=== PATIENT | female | born 1965 | race Caucasian/White ===

== ENCOUNTER 2019-07-16 09:20 | Inpatient (IN) | payer OTHER ==
[~2019-07-16] VITALS: Ht 177.8 cm; Wt 170.1 kg
[2019-07-16 09:36] VITALS: Ht 177.8 cm; Wt 170.1 kg
[2019-07-16 11:05] LABS: BILIRUBIN TOTAL 0.6 mg/dL (0.20-1.00); CALCIUM 9.4 mg/dL (8.5-10.1); CARBON DIOXIDE 33.2 mmol/L (21-32); POTASSIUM SERUM 4.5 mmol/L (3.5-5.1); TOTAL PROTEIN, SERUM 7.6 g/dL (6.4-8.2)
[2019-07-16 11:07] LABS: CREATININE SERUM 6.8 mg/dL (0.6-1.0)
[2019-07-16] MEDS ORDERED: BUDESONIDE0.25 MG/2 (11:50)
[2019-07-16] MEDS ORDERED: PHOS (11:50)
[2019-07-16] MEDS ORDERED: ALBUTEROL0.63 MG/3 (11:50)
[2019-07-16] MEDS ORDERED: LEVOTHYROXIN0.025 M2 (11:51)
[2019-07-16] MEDS ORDERED: OSTERA TABLET1 EACH (11:51)
[2019-07-16] MEDS ORDERED: PREDNISONE20 MG (11:51)
[2019-07-16] MEDS ORDERED: RENA-VITE RX1 TAB (11:51)
[2019-07-16] MEDS ORDERED: PROA (11:52)
[2019-07-16] MEDS ORDERED: BACTRIM DS1 TAB (11:52)
[2019-07-16] MEDS ORDERED: SUSTIVA50 MG (11:52)
[2019-07-16] MEDS ORDERED: EPZICOM1 TAB (11:52)
[2019-07-16] MEDS ORDERED: EFFEXOR-XR37.5 MG (11:53)
[2019-07-16] MEDS ORDERED: RISPERDAL0.5 MG (11:53)
[2019-07-16] MEDS ORDERED: KRISTALOSE10 GM/Pack (11:53)
[2019-07-16] MEDS ORDERED: PANTOPRAZOLE SO20 M1 (11:53)
[2019-07-16] MEDS ORDERED: NORCO1 TA2 (11:53)
[2019-07-16 12:08] LABS: microscopic required? YES
[2019-07-16 12:10] LABS: UA SPECIFIC GRAVITY 1.025 (1.005-1.035)
[2019-07-16 12:23] LABS: urine erythrocyte 3+ (NEGATIVE)
[2019-07-16 12:55] LABS: BASOPHIL % 0.2 % (0-2); PLATELET COUNT 113 x10^3mcL (130-400)
[2019-07-16 18:30] VITALS: BP 141/92
[2019-07-16 21:05] VITALS: BP 115/54
[2019-07-17 04:22] VITALS: BP 107/50
[2019-07-17 06:35] LABS: BASOPHIL % 0.5 % (0-2)
[2019-07-17 06:44] LABS: PLATELET COUNT 93 x10^3mcL (130-400); RED CELL DISTRIBUTION WIDTH 18.8 % (11.5-14.5)
[2019-07-17 06:55] LABS: CARBON DIOXIDE 29.8 mmol/L (21-32); POTASSIUM SERUM 4.5 mmol/L (3.5-5.1)
[2019-07-17 07:29] LABS: CREATININE SERUM 7.1 mg/dL (0.6-1.0)
[2019-07-17 08:07] VITALS: BP 139/80; BP 140/39
[2019-07-17 16:38] VITALS: BP 94/33
[2019-07-17 20:45] VITALS: BP 92/46
[2019-07-18 05:58] VITALS: BP 95/35
[2019-07-18 06:35] LABS: CALCIUM 8.6 mg/dL (8.5-10.1); CARBON DIOXIDE 29.8 mmol/L (21-32); POTASSIUM SERUM 3.7 mmol/L (3.5-5.1)
[2019-07-18 07:18] LABS: CREATININE SERUM 5.5 mg/dL (0.6-1.0)
[2019-07-18 07:44] LABS: PLATELET COUNT 99 x10^3mcL (130-400); RED CELL DISTRIBUTION WIDTH 18.5 % (11.5-14.5)
[2019-07-18 08:06] VITALS: BP 99/60
[2019-07-18 11:39] VITALS: BP 97/55
[2019-07-18 16:33] VITALS: BP 107/53
[2019-07-18 20:41] VITALS: BP 110/46
[2019-07-19 05:56] VITALS: BP 130/54
[2019-07-19 06:53] LABS: CARBON DIOXIDE 28.6 mmol/L (21-32); MAGNESIUM 2.6 mg/dL (1.8-2.4); POTASSIUM SERUM 3.8 mmol/L (3.5-5.1)
[2019-07-19 06:54] LABS: CREATININE SERUM 6.3 mg/dL (0.6-1.0)
[2019-07-19 06:57] LABS: BASOPHIL % 0.2 % (0-2)
[2019-07-19 07:22] LABS: PLATELET COUNT 89 x10^3mcL (130-400); RED CELL DISTRIBUTION WIDTH 18.5 % (11.5-14.5)
[2019-07-19 07:53] VITALS: BP 118/50
[2019-07-19 11:37] VITALS: BP 110/55
[2019-07-19 15:28] VITALS: BP 109/57
[2019-07-19 19:36] VITALS: BP 100/46
[2019-07-20 04:20] VITALS: BP 94/34
[2019-07-20 06:22] LABS: BASOPHIL % 0.3 % (0-2)
[2019-07-20 07:04] LABS: CALCIUM 8.7 mg/dL (8.5-10.1); CARBON DIOXIDE 26.9 mmol/L (21-32); PHOSPHOROUS 6.2 mg/dL (2.5-4.9); POTASSIUM SERUM 4.3 mmol/L (3.5-5.1)
[2019-07-20 07:18] LABS: CREATININE SERUM 7.3 mg/dL (0.6-1.0)
[2019-07-20 07:23] LABS: PLATELET COUNT 92 x10^3mcL (130-400); RED CELL DISTRIBUTION WIDTH 18.2 % (11.5-14.5)
[2019-07-20 08:06] VITALS: BP 100/32
[2019-07-20 11:34] VITALS: BP 104/41
[2019-07-20 16:43] VITALS: BP 95/40
[2019-07-20 21:02] VITALS: BP 103/41
[2019-07-21 04:59] VITALS: BP 102/62
[2019-07-21 07:12] LABS: CALCIUM 8.4 mg/dL (8.5-10.1); CARBON DIOXIDE 28.6 mmol/L (21-32); MAGNESIUM 2.2 mg/dL (1.8-2.4)
[2019-07-21 07:12] LABS: BASOPHIL % 0.7 % (0-2)
[2019-07-21 07:21] LABS: CREATININE SERUM 5.8 mg/dL (0.6-1.0)
[2019-07-21 07:35] LABS: PLATELET COUNT 94 x10^3mcL (130-400); RED CELL DISTRIBUTION WIDTH 18.6 % (11.5-14.5)
[2019-07-21 09:18] VITALS: BP 100/47
[2019-07-21 12:12] VITALS: BP 125/53
[2019-07-21 18:23] VITALS: BP 100/38
[2019-07-21 20:32] VITALS: BP 120/52
[2019-07-22 06:03] VITALS: BP 96/57
[2019-07-22 07:46] LABS: CALCIUM 9.2 mg/dL (8.5-10.1); CARBON DIOXIDE 26.2 mmol/L (21-32); POTASSIUM SERUM 4.1 mmol/L (3.5-5.1)
[2019-07-22 07:49] LABS: CREATININE SERUM 6.7 mg/dL (0.6-1.0)
[2019-07-22 08:37] LABS: BASOPHIL % 0.7 % (0-2)
[2019-07-22 08:39] LABS: PLATELET COUNT 99 x10^3mcL (130-400); RED CELL DISTRIBUTION WIDTH 17.9 % (11.5-14.5)
[2019-07-22 12:04] VITALS: BP 155/51
[2019-07-22 17:42] VITALS: BP 125/51
[2019-07-22 21:24] VITALS: BP 106/52
[2019-07-23 04:24] VITALS: BP 121/56
[2019-07-23 08:15] LABS: BASOPHIL % 0.1 % (0-2); PLATELET COUNT 105 x10^3mcL (130-400); RED CELL DISTRIBUTION WIDTH 18.2 % (11.5-14.5)
[2019-07-23 08:26] LABS: CALCIUM 9.4 mg/dL (8.5-10.1); MAGNESIUM 2.4 mg/dL (1.8-2.4); POTASSIUM SERUM 4.6 mmol/L (3.5-5.1)
[2019-07-23 08:30] LABS: CREATININE SERUM 7.4 mg/dL (0.6-1.0)
[2019-07-23 08:44] VITALS: BP 107/44
[2019-07-23 12:31] VITALS: BP 116/40
[2019-07-23 21:11] VITALS: BP 100/46
[2019-07-23 22:00] VITALS: BP 115/59
[2019-07-24 05:07] VITALS: BP 104/43
[2019-07-24 09:20] VITALS: BP 94/43
[2019-07-24 12:08] VITALS: BP 91/44
[2019-07-24 15:57] VITALS: BP 121/56
[2019-07-24 19:37] VITALS: BP 103/47
[2019-07-25 06:39] VITALS: BP 105/54
[2019-07-25 08:39] VITALS: BP 114/84
[2019-07-25 10:00] LABS: CALCIUM 9.2 mg/dL (8.5-10.1); CARBON DIOXIDE 28.3 mmol/L (21-32); POTASSIUM SERUM 4.4 mmol/L (3.5-5.1)
[2019-07-25 10:04] LABS: CREATININE SERUM 7.1 mg/dL (0.6-1.0)
[2019-07-25 12:02] VITALS: BP 110/36
[2019-07-25 16:52] VITALS: BP 109/41
[2019-07-25 20:15] VITALS: BP 103/41
[2019-07-26 06:07] VITALS: BP 97/61
[2019-07-26 08:28] VITALS: BP 91/58
[2019-07-26 10:00] VITALS: BP 111/27
[2019-07-26 16:43] VITALS: BP 112/61
[2019-07-26 20:24] VITALS: BP 107/47
[2019-07-27 04:44] VITALS: BP 96/52
[2019-07-27 08:07] VITALS: BP 109/56
[2019-07-27 10:23] LABS: CARBON DIOXIDE 30.4 mmol/L (21-32); POTASSIUM SERUM 4.1 mmol/L (3.5-5.1)
[2019-07-27 10:26] LABS: CREATININE SERUM 6.7 mg/dL (0.6-1.0)
[2019-07-27 11:39] VITALS: BP 111/60
[2019-07-27 16:09] VITALS: BP 97/45
[2019-07-27 21:03] VITALS: BP 92/39
[2019-07-28 05:18] VITALS: BP 95/346
[2019-07-28 07:51] VITALS: BP 96/45
[2019-07-28 11:53] VITALS: BP 101/53
[2019-07-28 16:07] VITALS: BP 106/50
[2019-07-28 20:17] VITALS: BP 114/50
[2019-07-29 05:05] VITALS: BP 100/36
[2019-07-29 09:00] VITALS: BP 117/38
[2019-07-29 13:11] VITALS: BP 109/50
[2019-07-29 16:32] VITALS: BP 125/51
[2019-07-29 20:07] VITALS: BP 125/52
[2019-07-30 05:39] VITALS: BP 125/60
[2019-07-30 09:05] VITALS: BP 129/61
[2019-07-30 11:54] VITALS: BP 137/60
[2019-07-30 16:57] VITALS: BP 127/44
[2019-07-30 21:10] VITALS: BP 100/51
[2019-07-31 06:09] VITALS: BP 106/46
[2019-07-31 06:13] LABS: BASOPHIL % 0.5 % (0-2); PLATELET COUNT 134 x10^3mcL (130-400)
[2019-07-31 06:29] LABS: CALCIUM 8.9 mg/dL (8.5-10.1); CARBON DIOXIDE 29.3 mmol/L (21-32)
[2019-07-31 06:35] LABS: RED CELL DISTRIBUTION WIDTH 18.1 % (11.5-14.5)
[2019-07-31 06:42] LABS: CREATININE SERUM 6.3 mg/dL (0.6-1.0)
[2019-07-31 08:09] VITALS: BP 94/48
[2019-07-31 11:50] VITALS: BP 111/59
[2019-07-31 20:35] VITALS: BP 102/48
[2019-08-01 05:21] VITALS: BP 120/49
[2019-08-01 09:23] VITALS: BP 112/43
[2019-08-01 12:12] VITALS: BP 114/44
[2019-08-01 16:39] VITALS: BP 100/38
[2019-08-01 20:06] VITALS: BP 99/48
[2019-08-02 04:14] VITALS: BP 103/50
[2019-08-02 09:58] VITALS: BP 125/63
[2019-08-02 16:48] VITALS: BP 112/48
[2019-08-02 19:59] VITALS: BP 102/47
[2019-08-03 04:49] VITALS: BP 101/50
[2019-08-03 07:50] VITALS: BP 117/52
[2019-08-03 12:00] VITALS: BP 100/43
[2019-08-03 14:17] VITALS: BP 100/43
[2019-08-03 16:24] VITALS: BP 104/60
[2019-08-03 20:52] VITALS: BP 99/55
== END 2019-08-03 20:55 | DRG 720 ==
LOC: ED 09:20 → DU 12:52 → MU 12:52 → DU 17:25 → MU 07-20 10:01
PROVIDERS: Emergency Medicine; Internal Medicine; ADMIT Internal Medicine
PROC: 02HV33Z Insertion of Infusion Device into Superior Vena Cava, Percutaneous Approach (ICD-10-PCS; principal; 2019-07-16)
PROC: B548ZZA Ultrasonography of Superior Vena Cava, Guidance (ICD-10-PCS; 2019-07-16)
PROC: 5A1D70Z Performance of Urinary Filtration, Intermittent, Less than 6 Hours Per Day (ICD-10-PCS; 2019-07-17)
PROC: 5A1D70Z Performance of Urinary Filtration, Intermittent, Less than 6 Hours Per Day (ICD-10-PCS; 2019-07-20)
PROC: 5A1D70Z Performance of Urinary Filtration, Intermittent, Less than 6 Hours Per Day (ICD-10-PCS; 2019-07-23)
PROC: 5A1D70Z Performance of Urinary Filtration, Intermittent, Less than 6 Hours Per Day (ICD-10-PCS; 2019-07-25)
PROC: 5A1D70Z Performance of Urinary Filtration, Intermittent, Less than 6 Hours Per Day (ICD-10-PCS; 2019-07-27)
PROC: 5A1D70Z Performance of Urinary Filtration, Intermittent, Less than 6 Hours Per Day (ICD-10-PCS; 2019-07-30)
PROC: 5A1D70Z Performance of Urinary Filtration, Intermittent, Less than 6 Hours Per Day (ICD-10-PCS; 2019-08-01)
PROC: 5A1D70Z Performance of Urinary Filtration, Intermittent, Less than 6 Hours Per Day (ICD-10-PCS; 2019-08-03)
DX: A41.9 Sepsis, unspecified organism (principal); G93.41 Metabolic encephalopathy; N18.6 End stage renal disease; D69.6 Thrombocytopenia, unspecified; I50.9 Heart failure, unspecified; I11.0 Hypertensive heart disease with heart failure; E66.01 Morbid (severe) obesity due to excess calories; J44.9 Chronic obstructive pulmonary disease, unspecified; E03.9 Hypothyroidism, unspecified; K21.9 Gastro-esophageal reflux disease without esophagitis; F32.9 Major depressive disorder, single episode, unspecified; N39.0 Urinary tract infection, site not specified; D64.9 Anemia, unspecified; Z88.0 Allergy status to penicillin; Z99.2 Dependence on renal dialysis
CPT/HCPCS: C9113; G0378; J0696; J0885-EC; J1644; J3370; J7030; J7060; P9047; Q0092; Q0163

== ENCOUNTER 2019-08-11 08:45 | Inpatient (IN) | payer OTHER ==
[~2019-08-11] VITALS: Ht 177.8 cm; Wt 181.2 kg
[~2019-08-11 08:45] MED LIST: ALBUTEROL0.63 MG/3; BACTRIM DS1 TAB; BUDESONIDE0.25 MG/2; EFFEXOR-XR37.5 MG; EPZICOM1 TAB; KRISTALOSE10 GM/Pack; LEVOTHYROXIN0.025 M2; NORCO1 TA2; OSTERA TABLET1 EACH; PANTOPRAZOLE SO20 M1; PHOS; PREDNISONE20 MG; PROA; RENA-VITE RX1 TAB; RISPERDAL0.5 MG; SUSTIVA50 MG
[2019-08-11 08:47] VITALS: Ht 177.8 cm; Wt 181.2 kg
[2019-08-11 09:31] LABS: BASOPHIL % 0.2 % (0-2); PLATELET COUNT 130 x10^3mcL (130-400)
[2019-08-11 09:32] LABS: RED CELL DISTRIBUTION WIDTH 18.1 % (11.5-14.5)
[2019-08-11 09:34] LABS: BILIRUBIN TOTAL 0.49 mg/dL (0.20-1.00); CARBON DIOXIDE 28.9 mmol/L (21-32); POTASSIUM SERUM 5.4 mmol/L (3.5-5.1); TOTAL PROTEIN, SERUM 7.4 g/dL (6.4-8.2)
[2019-08-11 09:35] LABS: ALBUMIN 2.5 g/dL (3.4-5.0)
[2019-08-11 11:04] LABS: rbc morphology (normal/abnorm) ABNORMAL (NORMAL)
[2019-08-11 11:07] LABS: tear drop cell (dacryocyte) 1+
[2019-08-11 11:08] LABS: ovalocyte/elliptocyte 1+
[2019-08-11 14:53] VITALS: BP 100/55
[2019-08-11 16:53] VITALS: BP 102/49
[2019-08-11 19:23] LABS: UA SPECIFIC GRAVITY 1.025 (1.005-1.035); microscopic required? YES; urine erythrocyte 3+ (NEGATIVE)
[2019-08-11 20:14] VITALS: BP 122/34
[2019-08-12 05:37] VITALS: BP 105/44
[2019-08-12 06:45] LABS: PLATELET COUNT 131 x10^3mcL (130-400)
[2019-08-12 07:28] LABS: RED CELL DISTRIBUTION WIDTH 20.9 % (11.5-14.5)
[2019-08-12 07:35] VITALS: BP 107/47
[2019-08-12 07:41] LABS: CALCIUM 8.8 mg/dL (8.5-10.1); CARBON DIOXIDE 25.9 mmol/L (21-32); PHOSPHOROUS 7.3 mg/dL (2.5-4.9); POTASSIUM SERUM 5.2 mmol/L (3.5-5.1)
[2019-08-12 07:42] LABS: CREATININE SERUM 6.4 mg/dL (0.6-1.0)
[2019-08-12 12:17] VITALS: BP 103/42
[2019-08-12 14:01] LABS: SEGMENTED NEUTROPHILS 78 % (37-75)
[2019-08-12 14:02] LABS: BASOPHIL 2 % (0-2); MONOCYTE 8 % (0-7)
[2019-08-12 14:03] LABS: PLATELET MORPHOLOGY PLATELETS NORMAL; ovalocyte/elliptocyte 1+; rbc morphology (normal/abnorm) ABNORMAL (NORMAL); tear drop cell (dacryocyte) 1+
[2019-08-12 16:11] VITALS: BP 117/50
[2019-08-12 20:39] VITALS: BP 104/47
[2019-08-13 05:06] VITALS: BP 117/43
[2019-08-13 06:41] LABS: BASOPHIL % 0.4 % (0-2)
[2019-08-13 06:59] LABS: PLATELET COUNT 112 x10^3mcL (130-400); RED CELL DISTRIBUTION WIDTH 20.1 % (11.5-14.5)
[2019-08-13 07:31] LABS: CALCIUM 8.6 mg/dL (8.5-10.1); CARBON DIOXIDE 27.3 mmol/L (21-32); POTASSIUM SERUM 4.2 mmol/L (3.5-5.1)
[2019-08-13 07:40] LABS: CREATININE SERUM 5.9 mg/dL (0.6-1.0)
[2019-08-13 09:12] VITALS: BP 114/54
[2019-08-13 11:26] LABS: ovalocyte/elliptocyte 1+; rbc morphology (normal/abnorm) ABNORMAL (NORMAL)
[2019-08-13 11:58] VITALS: BP 109/52
[2019-08-13 16:32] VITALS: BP 124/57
[2019-08-13 21:08] VITALS: BP 109/53
[2019-08-14] VITALS (7 sets, daily range): BP systolic 96–134; BP diastolic 41–50
[2019-08-14 06:22] LABS: BASOPHIL % 0.6 % (0-2)
[2019-08-14 06:46] LABS: CALCIUM 8.6 mg/dL (8.5-10.1); CARBON DIOXIDE 28.1 mmol/L (21-32); POTASSIUM SERUM 4.2 mmol/L (3.5-5.1)
[2019-08-14 06:58] LABS: CREATININE SERUM 5.1 mg/dL (0.6-1.0)
[2019-08-14 07:07] LABS: PLATELET COUNT 119 x10^3mcL (130-400); RED CELL DISTRIBUTION WIDTH 20.1 % (11.5-14.5)
[2019-08-14 08:17] LABS: ovalocyte/elliptocyte 1+; rbc morphology (normal/abnorm) ABNORMAL (NORMAL)
[2019-08-14] MEDS ORDERED: MEROPENEM1 GM IV (20:18)
== END 2019-08-14 20:48 | DRG 463 ==
LOC: ED 08:45 → DU 12:28 → MU 08-14 10:31
PROVIDERS: Emergency Medicine; ADMIT General Practice
PROC: 30233N1 Transfusion of Nonautologous Red Blood Cells into Peripheral Vein, Percutaneous Approach (ICD-10-PCS; principal; 2019-08-11)
PROC: 5A1D70Z Performance of Urinary Filtration, Intermittent, Less than 6 Hours Per Day (ICD-10-PCS; 2019-08-11)
PROC: 5A1D70Z Performance of Urinary Filtration, Intermittent, Less than 6 Hours Per Day (ICD-10-PCS; 2019-08-12)
PROC: 5A1D70Z Performance of Urinary Filtration, Intermittent, Less than 6 Hours Per Day (ICD-10-PCS; 2019-08-13)
DX: N39.0 Urinary tract infection, site not specified (principal); G93.41 Metabolic encephalopathy; E43 Unspecified severe protein-calorie malnutrition; I13.2 Hypertensive heart and chronic kidney disease with heart failure and with stage 5 chronic kidney disease, or end stage renal disease; N18.6 End stage renal disease; I48.91 Unspecified atrial fibrillation; E83.39 Other disorders of phosphorus metabolism; E66.01 Morbid (severe) obesity due to excess calories; E87.5 Hyperkalemia; J44.9 Chronic obstructive pulmonary disease, unspecified; I50.9 Heart failure, unspecified; D63.8 Anemia in other chronic diseases classified elsewhere; F31.9 Bipolar disorder, unspecified; K21.9 Gastro-esophageal reflux disease without esophagitis; E03.9 Hypothyroidism, unspecified; Z99.2 Dependence on renal dialysis; Z91.15 Patient's noncompliance with renal dialysis; Z88.0 Allergy status to penicillin; Z68.44 Body mass index [BMI] 60.0-69.9, adult; Z79.899 Other long term (current) drug therapy
CPT/HCPCS: 83880; C9113; G0378; J0885-EC; J1644; J1956; J2185; J2405; J7030; J7050; P9016; Q0092